=== PATIENT | male | born 1955 | race Caucasian/White ===

== ENCOUNTER 2019-05-31 06:34 | Emergency (ER) | payer BC ==
[~2019-05-31] VITALS: Ht 180.3 cm; Wt 104.3 kg
[2019-05-31 10:26] VITALS: BP 144/82
== END 2019-05-31 10:36 | disposition home or self-care (01) ==
LOC: EDBD 06:34 → ER 06:34
DX: R20.0 Anesthesia of skin (principal); Z86.73 Personal history of transient ischemic attack (TIA), and cerebral infarction without residual deficits
CPT/HCPCS: 93005